=== PATIENT | male | born 1980 | race Caucasian/White ===

== ENCOUNTER 2017-02-08 20:06 | Emergency (ER) | payer OTHER ==
--- NOTE | 2017-02-08 20:20 | ED.ADGEN ---
Past History Past Medical History: Other Adult General Chief Complaint Chief Complaint ".. I was working out at [employer] ([employer])... trying to get in shape... and something popped in this Lt knee.... I ve had a Duff cyst before.. but this feels different..." HPI HPI Patient is a 36 year old male who presents with above hx and complaints of pain in Lt. knee. Pt distal neurovascular intact. Findings of Duff Cyst. Can do straight leg lift. Pain in posterior compartment and patella insertion anterior. Noted edema and pain with range of motion. Edema, no obvious dislocation . Patient reports pain with ambulation. Review of Systems Review of Systems Constitutional: Denies fever or chills [] Eyes: Denies change in visual acuity, redness, or eye pain [] HENT: Denies nasal congestion or sore throat [] Respiratory: Denies cough or shortness of breath [] Cardiovascular: No additional information not addressed in HPI [] GI: Denies abdominal pain, nausea, vomiting, bloody stools or diarrhea [] : Denies dysuria or hematuria [] Musculoskeletal: Denies back pain or joint pain. Complaints of left knee pain Integument: Denies rash or skin lesions [] Neurologic: Denies headache, focal weakness or sensory changes [] Endocrine: Denies polyuria or polydipsia [] Family History Family History Noncontributory Current Medications Current Medications Current Medications Medications (Trade) Dose Ordered Sig/Elin Start Time Stop Time Status Last Admin Dose Admin Ketorolac Tromethamine (Toradol) 60 mg 1X ONCE 02/08/17 20:45 02/08/17 20:46 DC 02/08/17 20:39 60 MG Allergies Allergies Allergies Coded Allergies Type Severity Reaction Last Updated Verified No Known Allergies Allergy Unknown 02/08/17 Yes No known drug allergies Physical Exam Physical Exam Constitutional: Well developed, well nourished, no acute distress, non-toxic appearance. [] HENT: Normocephalic, atraumatic, bilateral external ears normal, oropharynx moist, no oral exudates, nose normal. [] Eyes: PERRLA, EOMI, conjunctiva normal, no discharge. [] Neck: Normal range of motion, no tenderness, supple, no stridor. [] Cardiovascular:Heart rate regular rhythm, no murmur [] Lungs & Thorax: Bilateral breath sounds clear to auscultation [] Abdomen: Bowel sounds normal, soft, no tenderness, no masses, no pulsatile masses. [] Skin: Warm, dry, no erythema, no rash. Tattoos Back: No tenderness, no CVA tenderness. [] Extremities: No tenderness, no cyanosis, no clubbing, ROM intact, no edema. Except findings of left knee as per history of present illness Neurologic: Alert and oriented X 3, normal motor function, normal sensory function, no focal deficits noted. [] Psychologic: Affect normal, judgement normal, mood normal. [] Current Patient Data Vital Signs Vital Signs Date Time Temp Pulse Resp B/P (MAP) Pulse Ox O2 Delivery O2 Flow Rate FiO2 02/08/17 20:24 98.4 102 20 97 Room Air EKG EKG [] Radiology/Procedures Radiology/Procedures My interpretation of knee films shows no fracture or dislocation. Does have findings of edema. Course & Med Decision Making Course & Med Decision Making Pertinent Labs and Imaging studies reviewed. (See chart for details) Ice, elevation, splint, crutches, and follow-up with orthopedics. Tylenol / ibuprofen as needed for pain. [] Final Impression Final Impression 1. Sprain / Strain Lt Knee[] 2. Duff's cyst Problems: Dragon Disclaimer Dragon Disclaimer This electronic medical record was generated, in whole or in part, using a voice recognition dictation system. KENDRICK PEACE MD Feb 08, 2017 20:20
[2017-02-08 20:24] VITALS: BP 144/89
[2017-02-08] MEDS ORDERED: KETOROLAC 60 MG/2 ML VIAL. IM ONE (20:45)
--- NOTE | 2017-02-09 08:46 | RAD ---
Left knee with patella, 4 views, 02/08/2017: History: Injury, pain On the tangential patellar view there is a tiny calcific density projected along the posteromedial margin of the patella. There is a suggestion of an underlying cortical defect in the patella. The appearance suggests a small cortical avulsion fracture. Is there a history of transient lateral patellar dislocation/subluxation? There is no current evidence of dislocation. No other fracture is evident. A sclerotic focus in the distal femur is compatible with an old healed fibrous cortical defect. There is a possible small knee joint effusion. IMPRESSION: Possible small cortical avulsion fracture arising from the posterior aspect of the patella as described above. If knee pain persists, MR scanning is suggested for further evaluation.
[2017-02-09] MEDS ORDERED: HYDR-2758 PO (12:00)
== END 2017-02-08 21:10 | disposition home or self-care (01) ==
LOC: ER 20:06
DX: M71.22 Synovial cyst of popliteal space [Baker], left knee (principal); M25.562 Pain in left knee; X58.XXXA Exposure to other specified factors, initial encounter; Y93.89 Activity, other specified; Y99.8 Other external cause status; Y92.89 Other specified places as the place of occurrence of the external cause
CPT/HCPCS: 29515; 73564; 96372; 99284; J1885

== ENCOUNTER 2017-02-09 11:29 | Emergency (ER) | payer OTHER ==
[2017-02-09] MEDS ORDERED: HYDR-2758 PO (12:00)
[2017-02-09] MEDS ORDERED: HYDROmorphone PF 1 MG/ML DISP.SYRIN IM ONE (12:00)
--- NOTE | 2017-02-09 12:00 | PHYS DOC ---
Past History Past Medical History: Other Past Surgical History: No Surgical History Alcohol Use: None Drug Use: None Adult General Chief Complaint Chief Complaint: KNEE INJURY HPI HPI 36-year-old male presenting to the emergency department today with left knee pain. He reports his left knee pain started a few days ago when he twisted it and injured it. He describes the pain is mild intermittent worse with walking and associated with swelling. Review of systems was negative for hip pain or ankle pain. He denies chest pain shortness of breath or abdominal pain. All other review of systems is negative unless otherwise noted in history of present illness. ED course: 36-year-old male presenting to the emergency department today for left knee pain. He was seen here yesterday and had x-rays that showed an avulsion fracture of his patella. We placed the patient in the left knee immobilizer to follow-up with orthopedic surgery in 4-5 days. She is provided oral pain medications for pain control. He was to weight-bear as tolerated. The patient was then discharged home in stable condition to follow up with their primary care physician over the next 2-3 days. They were to return if their symptoms worsened or if they were concerned for any reason. [id number] discharge instructions and return precautions were given. Patient's questions were answered to their satisfaction. Patient is comfortable plan. Review of Systems Review of Systems SEE ABOVE. Current Medications Current Medications Current Medications Medications (Trade) Dose Ordered Sig/Elin Start Time Stop Time Status Last Admin Dose Admin Hydromorphone HCl (Dilaudid) 0.5 mg 1X ONCE 02/09/17 12:00 02/09/17 12:01 UNV Allergies Allergies Allergies Coded Allergies Type Severity Reaction Last Updated Verified No Known Allergies Allergy Unknown 02/08/17 Yes Physical Exam Physical Exam Constitutional: Well developed, well nourished, no acute distress, non-toxic appearance. [] HENT: Normocephalic, atraumatic, bilateral external ears normal, oropharynx moist, no oral exudates, nose normal. [] Eyes: PERRLA, EOMI, conjunctiva normal, no discharge. [] Neck: Normal range of motion, no tenderness, supple, no stridor. [] Cardiovascular:Heart rate regular rhythm, no murmur [] Lungs & Thorax: Bilateral breath sounds clear to auscultation [] Abdomen: Bowel sounds normal, soft, no tenderness, no masses, no pulsatile masses. [] Skin: Warm, dry, no erythema, no rash. [] Back: No tenderness, no CVA tenderness. [] Extremities: No tenderness, no cyanosis, no clubbing, ROM intact, no edema. [] Neurologic: Alert and oriented X 3, normal motor function, normal sensory function, no focal deficits noted. [] Psychologic: Affect normal, judgement normal, mood normal. [] Current Patient Data Vital Signs Vital Signs Date Time Temp Pulse Resp B/P (MAP) Pulse Ox O2 Delivery O2 Flow Rate FiO2 02/09/17 11:29 98.3 93 18 94 Room Air EKG EKG [] Radiology/Procedures Radiology/Procedures [] Course & Med Decision Making Course & Med Decision Making Pertinent Labs and Imaging studies reviewed. (See chart for details) [] Dragon Disclaimer Dragon Disclaimer This chart was dictated in whole or in part using Voice Recognition software in a busy, high-work load, and often noisy Emergency Department environment. It may contain unintended and wholly unrecognized errors or omissions. Departure Departure: Impression: Primary Impression: Left knee injury Disposition: HOME, SELF-CARE Condition: STABLE Referrals: PCP,RAMSEY (PCP) Patient Instructions: Knee Pain Additional Instructions: [facility] [address] [place] [address], [address] [place] [address] Thank you for allowing us to participate in your care today. Followup with our orthopedic surgeon dr little in 5-7 days. Call your Primary Doctor tomorrow and inform them of your visit today. If you do not have a primary care provider you can ask for a list of our primary care providers. Return to the emergency department you have any new or concerning findings. This should be evaluated by the primary care physician and any necessary consulting services for continued management within a few days after discharge. Return to emergency room if you have any new or concerning symptoms including but not limited to fever, chills, nausea, vomiting, intractable pain, any new rashes, chest pain, shortness of air, uncontrolled bleeding, difficulty breathing, and/or vision loss. You may have been prescribed medication that can change in your level of thinking and ability to operate machinery. These medications include hydrocodone and Ativan. Also, Benadryl has been known to do this as well. Be sure to check with your pharmacist and ask if the medications you've prescribed can affect your level of consciousness. I recommend not operating heavy machinery or driving while on medication such as these. Scripts Hydrocodone Bit/Acetaminophen (HYDROCODONE-APAP 5-325 ) 1 Each Tablet 1 TAB PO PRN Q6HRS Y for PAIN, #15 TAB 0 Refills Prov: SUYAPA TRACEY MD 02/09/17 SUYAPA TRACEY MD Feb 09, 2017 12:00
[2017-02-09 12:20] VITALS: BP 132/74
== END 2017-02-09 12:20 | disposition home or self-care (01) ==
LOC: ER 11:29
DX: S89.92XA Unspecified injury of left lower leg, initial encounter (principal); X58.XXXA Exposure to other specified factors, initial encounter; Y93.89 Activity, other specified; Y99.8 Other external cause status; Y92.89 Other specified places as the place of occurrence of the external cause
CPT/HCPCS: 29505; 96372; 99283; J1170